=== PATIENT | male | born 1995 | race Caucasian/White ===

== ENCOUNTER 2017-09-28 13:14 | Emergency (ER) | payer OTHER ==
[2017-09-28] MEDS ORDERED: Doxycycline 100 MG Cap PO ONE (14:26)
--- NOTE | 2017-09-28 14:29 | EDM.PDOC ---
ED HPI GENERAL MEDICAL PROBLEM - General Chief Complaint: Bite:Animal, Insect Stated Complaint: TICK BITE ON RT SHOULDER Time Seen by Provider: 09/28/17 14:04 Source of Information: Reports: Patient History Limitations: Reports: No Limitations - History of Present Illness INITIAL COMMENTS - FREE TEXT/NARRATIVE: 22 yo male presents to ER with a deer tick bite to back. Unsure how long tick was attached. Bite site mildly itchy. denies fever, chills, or headache - Related Data Allergies Allergy/AdvReac Type Severity Reaction Status Date / Time Penicillins Allergy Hives Verified 09/28/17 14:08 Home Meds: Home Meds NK [No Known Home Meds] 09/28/17 [History] Past Medical History - Past Health History Medical/Surgical History: Denies Medical/Surgical History Social & Family History - Tobacco Use Smoking Status *Q: Never Smoker ED ROS GENERAL - Review of Systems Review Of Systems: See Below Constitutional: Denies: Fever, Chills, Malaise Respiratory: Denies: Shortness of Breath, Wheezing Cardiovascular: Denies: Chest Pain ED EXAM, ANIMAL BITE - Physical Exam Exam: See Below Exam Limited By: No Limitations General Appearance: Alert, WD/WN, No Apparent Distress Respiratory/Chest: No Respiratory Distress, Lungs Clear, Normal Breath Sounds. No: Crackles, Rhonchi, Wheezing Cardiovascular: Regular Rate, Rhythm Skin Exam: Rash (target lesion right upper back) Course - Vital Signs Last Recorded V/S: Last Vital Signs Temp 35.8 C 09/28/17 14:01 Pulse 74 09/28/17 14:01 Resp 14 09/28/17 14:01 BP 138/74 09/28/17 14:01 Pulse Ox 98 09/28/17 14:01 - Orders/Labs/Meds Orders: Active Orders 24 hr Category Date Time Status Doxycycline [Vibramycin] Med 09/28/17 14:26 Once 200 mg PO ONETIME ONE - Re-Assessments/Exams Free Text/Narrative Re-Assessment/Exam: 09/28/17 14:28 doxycycline given in ER Departure - Departure Time of Disposition: 14:28 Disposition: Home, Self-Care 01 Condition: Good Clinical Impression: Tick bite of back Qualifiers: Encounter type: initial encounter Qualified Code(s): S30.860A - Insect bite ( nonvenomous) of lower back and pelvis, initial encounter; W57.XXXA - Bitten or stung by nonvenomous insect and other nonvenomous arthropods, initial encounter - Discharge Information Instructions: Tick Bite Information, Adult, [id number] Referrals: PCP,None [Primary Care Provider] - Additional Instructions: wash with warm soapy water - My Orders Last 24 Hours: My Active Orders 09/28/17 14:26 Doxycycline [Vibramycin] 200 mg PO ONETIME ONE - Assessment/Plan Last 24 Hours: My Active Orders 09/28/17 14:26 Doxycycline [Vibramycin] 200 mg PO ONETIME ONE
== END 2017-09-28 14:37 | disposition home or self-care (01) ==
LOC: JP.ED 13:14
DX: S30.860A Insect bite (nonvenomous) of lower back and pelvis, initial encounter (principal); W57.XXXA Bitten or stung by nonvenomous insect and other nonvenomous arthropods, initial encounter; Z88.0 Allergy status to penicillin
CPT/HCPCS: 99283; A9270